=== PATIENT | female | born 1970 | race Caucasian/White ===

== ENCOUNTER 2017-10-30 00:03 | Emergency (ER) | payer OTHER ==
[~2017-10-30] VITALS: Ht 157.5 cm; Wt 72.7 kg
[~2017-10-30 00:03] MED LIST: FOLI0.4T2 PO; IBUP-2342 PO; PREN1TAB52 PO
[2017-10-30 00:04] VITALS: BP 113/71
[2017-10-30] MEDS ORDERED: PredniSONE 20 MG TABLET PO ONE (01:15)
[2017-10-30] MEDS ORDERED: DiphenhydrAMINE HCL 25 MG CAPSULE PO ONE (01:15)
== END 2017-10-30 01:31 | disposition home or self-care (01) ==
LOC: EMS 00:04
DX: L50.9 Urticaria, unspecified (principal)
CPT/HCPCS: 99283; J7512

== ENCOUNTER 2024-10-24 22:40 | Emergency (ER) | payer OTHER ==
[~2024-10-24] VITALS: Ht 157.5 cm; Wt 65.0 kg
[2024-10-25] MEDS: ACETAMINOPHEN 500 MG TABLET PO ONE (00:54)
[2024-10-25] MEDS: IBUPROFEN 400 MG TABLET PO ONE (00:54)
[2024-10-25 02:18] VITALS: BP 129/71; PULSE 74; RESP 18; TEMP 97.3; O2SAT 98
== END 2024-10-25 02:18 | disposition home or self-care (01) ==
LOC: EMS 22:41
DX: S92.252A Displaced fracture of navicular [scaphoid] of left foot, initial encounter for closed fracture (principal); W01.0XXA Fall on same level from slipping, tripping and stumbling without subsequent striking against object, initial encounter; Y93.01 Activity, walking, marching and hiking; Y92.89 Other specified places as the place of occurrence of the external cause; Y99.8 Other external cause status
CPT/HCPCS: 99283